=== PATIENT | male | born 1975 | race Two or more races ===

== ENCOUNTER 2024-03-07 06:00 | Day surgery (SDC) | payer OTHER ==
[~2024-03-07] VITALS: Ht 172.7 cm; Wt 86.2 kg
[2024-03-07] MEDS ORDERED: CIPROFLOXACIN 400MG/200ML 200 ML IV ONE (08:14)
[2024-03-07 08:47] LABS: Potassium 3.9 mmol/L (3.5-5.1); Sodium 142 mmol/L (136-145)
[2024-03-07 08:48] LABS: Anion Gap 7 (5-15); Calcium 9.3 mg/dL (8.7-10.4); Carbon Dioxide 27 mmol/L (20-31)
[2024-03-07 08:50] LABS: Basophils # (auto) 0 10 ^3/uL (0-0.2); Basophils % (auto) 0.8 % (0.0-2.0); Eosinophils # (auto) 0 10 ^3/uL (0-0.8); Eosinophils % (auto) 0.7 % (0.0-7.0); Hematocrit 42.3 % (41.0-53.0); Hemoglobin 13.9 g/dL (13.5-17.5); Lymphocytes # (auto) 1.4 10 ^3/uL (0.4-5.4); Mean Corpuscular Hgb Conc. 32.8 g/dL (32.0-36.0); Mean Corpuscular Volume 88.5 fL (80.0-100.0); Monocytes # (auto) 0.5 10 ^3/uL (0-1.3); Monocytes % (auto) 15.5 % (0.0-12.0); Neutrophils # (auto) 1.2 10 ^3/uL (1.6-8.6); Nucleated Red Blood Cells % 0.1 %; Platelet Count (auto) 106 10^3/uL (140-450); Red Blood Cells 4.78 10^6/uL (4.5-5.90); Red Cell Distribution Width 14.4 % (11.8-14.3); White Blood Cell 3.2 10^3/uL (4.4-10.8)
[2024-03-07 08:51] LABS: Chloride 108 mmol/L (98-107)
[2024-03-07 08:53] LABS: BUN/Creatinine Ratio 8.2 (10.0-20.0); Glucose 76 mg/dL (74-106)
[2024-03-07 08:57] LABS: Blood Urea Nitrogen 9 mg/dL (9-23); INR 1.23 (0.9-1.15); Partial Thromboplastin Time 27.6 SEC (24.5-34.5); Prothrombin Time 12.8 sec (9.3-11.8)
--- NOTE | 2024-03-07 10:14 | DVHDS2 ---
New Physician D'charge PN Admitting Diagnosis Admitting Diagnosis Elevated PSA Lower urinary tract symptoms Discharge Diagnosis Same Operations or Procedures Cystoscopy Transrectal ultrasound-guided prostate biopsy Reason(s) For Hospitalization Surgery Treatment Plan Discharge Condition of Discharge Good Disposition Shelter Discharge Instructions Diet: Regular Activity: Light activity Activity comment: As tolerated Medications: Given Follow Up Care Follow Up/Referral: Two weeks for pathology results Discharge Statement: "Patient was advised to return to the ER or call 911 if any headaches, dizziness, shortness of breath, chest pain, abdominal pain, bleeding, fevers, or worsening of medical condition. Patient was counseled about treatment plan, medications, possible side effects, patientverbalized understanding. All questions were answered to the best of my ability. This discharge took greater then 30 minutes in planning, reviewing documentation, counseling the patient, and discussing with other team members." TARIK DAHL MD Mar 07, 2024 10:14
[2024-03-07] MEDS ORDERED: HYDROmorphone HCL 2 MG/ML VL/or syr IV PRN (10:15)
[2024-03-07] MEDS ORDERED: ONDANSETRON HCL 4 MG/2 ML VIAL IV ONE (10:15)
[2024-03-07] MEDS ORDERED: MIDAZOLAM HCL 2MG/2ML 2ml VIAL (1mg/ml) ONE (10:22)
[2024-03-07] MEDS ORDERED: PROPOFOL 10 MG/ML 20 ML IV ONE ×2 (10:22→10:38)
[2024-03-07 10:54] VITALS: PULSE 87; RESP 18; O2SAT 100
[2024-03-07 10:55] VITALS: TEMP 97.9
[2024-03-07 11:10] VITALS: PULSE 80; RESP 18; O2SAT 100
[2024-03-07 11:40] VITALS: PULSE 77; RESP 15; O2SAT 98
[2024-03-07 11:50] VITALS: BP 121/73; PULSE 81; RESP 15; O2SAT 100
--- NOTE | 2024-03-08 14:28 | ECG ---
[facility] Test Date: 2024-03-07 Test Time: 11:05:30 Pat Name: CARLIN BASILIO Department: Room: Gender: M Business Operations Consultant: ANITA : 1975 Requested By: TARIK DAHL Order Number: [id number] Reading MD: Gabriela Lorenz Measurements Intervals [place] Rate: 80 P: 86 UT: 178 QRS: 26 QRSD: 84 T: 127 QT: 406 QTc: 468 Interpretive Statements Normal sinus rhythm Possible Left atrial enlargement Cannot rule out Inferior infarct , age undetermined T wave abnormality, consider anterolateral ischemia Electronically Signed On 03-09-2024 9:10:47 PST by Gabriela Lorenz Please click the below link to view image of tracing.
== END 2024-03-07 12:54 ==
LOC: SUR 06:00 → EEVIPCON 10:15 → SUR 12:54
PROVIDERS: ATTEND Urology
DX: N40.1 Benign prostatic hyperplasia with lower urinary tract symptoms (principal); R97.20 Elevated prostate specific antigen [PSA]; R94.31 Abnormal electrocardiogram [ECG] [EKG]
CPT/HCPCS: 36415; 55706; 76872; 80048; 85025; 85610; 85730; 88305; J0744; J2250; J2704; 93005